=== PATIENT | male | born 1985 | race Caucasian/White ===

== ENCOUNTER 2017-05-14 02:21 | Emergency (ER) | payer OTHER ==
[2017-05-14] MEDS ORDERED: ORPHENADRINE 30 MG/ML 2 ML VIAL ONE (03:00)
[2017-05-14] MEDS ORDERED: HYDROmorphone 2 MG/ML 1 ML SYRINGE ONE (03:00)
--- NOTE | 2017-05-14 06:15 | CT ---
EXAM: CT Lumbar Spine Without Intravenous Contrast CLINICAL HISTORY: No prior, lw back pain after slip and fall, history of lumbar fx and chronic low back pain TECHNIQUE: Axial computed tomography images of the lumbar spine without intravenous contrast. CTDI is 26.80 mGy and DLP is 1010.00 mGy-cm. This CT exam was performed using one or more of the following dose reduction techniques: automated exposure control, adjustment of the mA and/or kV according to patient size, and/or use of iterative reconstruction technique. COMPARISON: No relevant prior studies available. FINDINGS: Vertebrae: No acute fracture or spondylolisthesis. Old superior endplate fracture of T12 noted. Discs/spinal canal/neural foramina: No acute findings. No spinal canal stenosis. Soft tissues: Unremarkable. Stomach and bowel: Colonic fecal stasis noted. IMPRESSION: No acute fracture or spondylolisthesis. Old superior endplate fracture of T12 noted. Colonic fecal stasis noted.
== END 2017-05-14 05:55 | disposition home or self-care (01) ==
LOC: EC 02:21
DX: S39.012A Strain of muscle, fascia and tendon of lower back, initial encounter (principal); F17.200 Nicotine dependence, unspecified, uncomplicated; W00.0XXA Fall on same level due to ice and snow, initial encounter; Y92.009 Unspecified place in unspecified non-institutional (private) residence as the place of occurrence of the external cause
CPT/HCPCS: 72131; 99283; 96374; 96375; J1170; J2360